=== PATIENT | male | born 1965 | race Caucasian/White ===

== ENCOUNTER 2017-05-19 12:09 | Outpatient (CLI) ==
--- NOTE | 2017-05-19 12:37 | DI ---
EXAM: LEFT WRIST THREE VIEWS HISTORY: Pain, injury FINDINGS: No comparison. 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 No fracture or joint dislocation is identified. General bone density appears mildly decreased. No soft tissue finding. IMPRESSION: No fracture or dislocation. Arthropathy.
== END 2017-05-19 12:10 | disposition home or self-care (01) ==
LOC: RAD 12:09
PROVIDERS: ATTEND Family Medicine
DX: M25.532 Pain in left wrist (principal)

== ENCOUNTER → 2017-06-09 | Outpatient (REF) ==
--- NOTE | 2017-06-09 11:09 | DI ---
EXAM: Two views of the chest. History: Pre employment screening examination. Comparison: Chest radiograph 07/08/2016 Findings: Heart size is normal. No focal consolidation. No appreciable pleural fluid and no pneumo thorax. No acute osseous abnormalities. Impression: No acute cardiopulmonary process. No change compared to the prior study.
== END ==
LOC: RAD 10:43
DX: Z02.89 Encounter for other administrative examinations (principal)

== ENCOUNTER 2018-12-24 10:24 | Outpatient (CLI) | END 2018-12-24 10:25 | disposition home or self-care (01) | LOC: LAB 10:24 | PROVIDERS: ATTEND Family Medicine | DX: R73.01 Impaired fasting glucose (principal); E79.0 Hyperuricemia without signs of inflammatory arthritis and tophaceous disease; I10 Essential (primary) hypertension; E83.52 Hypercalcemia; Z12.5 Encounter for screening for malignant neoplasm of prostate | CPT/HCPCS: 36415; 80053; 80061; 83036; 83970; 84443; 84550; 85025 ==